=== PATIENT | female | born 1955 | race Caucasian/White ===

== ENCOUNTER 2016-11-12 13:45 | Emergency (ER) | payer OTHER ==
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
[2016-11-12] MEDS ORDERED: ALLEGRA ALLERG180 MG PO (14:10)
== END 2016-11-12 16:45 | disposition home or self-care (01) ==
LOC: SED 13:45
DX: S16.1XXA Strain of muscle, fascia and tendon at neck level, initial encounter (principal); S60.222A Contusion of left hand, initial encounter; J44.9 Chronic obstructive pulmonary disease, unspecified; F17.210 Nicotine dependence, cigarettes, uncomplicated; V89.2XXA Person injured in unspecified motor-vehicle accident, traffic, initial encounter
CPT/HCPCS: 72040; 73110; 73130; 99284